=== PATIENT | female | born 1975 | race Caucasian/White ===

== ENCOUNTER 2018-10-13 08:58 | Emergency (ER) | payer OTHER ==
[2018-10-13] MEDS ORDERED: TDAP ADULT 0.5 ML INJ (BOOSTRIX) IM ONE (09:19)
--- NOTE | 2018-10-13 09:37 | EDPHY ---
H & P Time Seen by Provider: 10/13/18 09:07 HPI/ROS: CHIEF COMPLAINT: Leg laceration HISTORY OF PRESENT ILLNESS: Patient was at the gym this morning doing box jumps when she missed and hit her left corea on the plywood edge of the box. She has a large gaping laceration to the anterior tibial region. She denies other injuries. She is unsure of her last tetanus vaccination. REVIEW OF SYSTEMS: Negative except per HPI. General Appearance: Alert, no distress. Eyes: Pupils equal and round no icterus Respiratory: No respiratory distress Neurological: Awake, alert, no focal deficits. Skin: Warm and dry, no rashes. Musculoskeletal: Neck is supple nontender. Extremities are symmetrical, full range of motion, no edema. Approximately 4 cm curved avulsed deep full-thickness laceration to the anterior tibial region mid left lower extremity. Distal intact. No gross contamination or foreign bodies visible. Psychiatric: Patient is oriented X 3, there is no agitation. Medical/surgical history: Hypothyroid Social history: Nonsmoker Smoking Status: Never smoked Constitutional: Initial Vital Signs Temperature (C) 36.7 C 10/13/18 09:06 Heart Rate 60 10/13/18 09:06 Respiratory Rate 16 10/13/18 09:06 Blood Pressure 112/74 10/13/18 09:06 O2 Sat (%) 97 10/13/18 09:06 O2 Delivery Mode Room Air Allergies/Adverse Reactions: No Known Allergies Allergy (Unverified 10/13/18 09:11) Home Medications: Medication Instructions Recorded Levothyroxine 10/13/18 Lo Loestrin Fe 1-10 Tablet 10/13/18 Medical Decision Making ED Course/Re-evaluation: 9:30 a.m. local wound anesthesia performed. 0.5% bupivacaine with epi, 6 mils. Procedure: Laceration repair. Verbal consent was obtained from the patient. The 4 cm laceration on the left leg was anesthetized in the usual fashion. The wound was irrigated, draped and explored to its base with a gloved finger. Some deep structures involved, able to visualize tibial periosteum. No foreign bodies noted. No tendon injury was identified. The wound was repaired with 3 0 Prolene to horizontal mattress, 1 simple interrupted. The wound repair was adequate wound approximation however wound with very rough edges and some avulsion of the upper flap. The procedure was performed by myself. Differential Diagnosis: Laceration repair as documented above after mishap at the gym with box jumps. Tetanus vaccination updated. Wound repair well-approximated but rough edge with crushed tissue. Discussed cosmesis with patient. Also discussed wound care and susceptibility to sunburn. Signs and symptoms of infection reviewed. Sutures out in 14 days. - Data Points Medications Given: Discontinued Medications Diphtheria/Tetanus/Acell Pertussis (Boostrix) 0.5 ml IM .ONCE ONE Stop: 10/13/18 09:20 Last Admin: 10/13/18 10:07 Dose: 0.5 ml Departure - Departure Clinical Impression: Laceration Condition: Good Instructions: Care For Your Stitches (ED), Laceration (ED) Additional Instructions: Keep clean and covered as discussed. Suture removal in 14 days. Return to the emergency department sooner if there are any concerns of infection. Referrals: NONE *PRIMARY CARE P,. [Primary Care Provider] - As per Instructions
[2018-10-13 11:05] VITALS: BP 123/81
== END 2018-10-13 11:06 | disposition home or self-care (01) ==
LOC: CED 08:58
PROC: 0HQLXZZ Repair Left Lower Leg Skin, External Approach (ICD-10-PCS; principal; 2018-10-13)
DX: S81.812A Laceration without foreign body, left lower leg, initial encounter (principal); Z23 Encounter for immunization; Y92.39 Other specified sports and athletic area as the place of occurrence of the external cause; Y93.9 Activity, unspecified; X50.9XXA Other and unspecified overexertion or strenuous movements or postures, initial encounter
CPT/HCPCS: 90471-ER; 99283-ER